=== PATIENT | female | born 2000 | race Caucasian/White ===

== ENCOUNTER 2021-11-29 10:47 | Emergency (ER) | payer OTHER ==
[2021-11-29 13:02] LABS: CORONAVIRUS 2019 SARS-COV-2 POSITIVE (NEGATIVE); INFLUENZA A NAA NEGATIVE (NEGATIVE)
[2021-11-29] MEDS ORDERED: ONDANSETRON ODT4 MG PO (13:28)
== END 2021-11-29 13:11 | disposition home or self-care (01) ==
LOC: FER 10:47
PROVIDERS: Emergency Medicine
DX: U07.1 COVID-19 (principal); F17.200 Nicotine dependence, unspecified, uncomplicated
CPT/HCPCS: 99284; U0002